=== PATIENT | female | born 1995 | race African-American/Black ===

== ENCOUNTER 2017-05-26 22:31 | Emergency (ER) | payer OTHER ==
[2017-05-26] MEDS: FAMOTIDINE 20 MG/2 ML VIAL IVP ×2 (22:53)
[2017-05-26] MEDS: methylPREDNISolone SOD SUCC PF 125 MG/2 ML VIAL. IV ×2 (22:53)
[2017-05-26] MEDS: diphenhydrAMINE 50 MG/ML VIAL IVP ×2 (22:54)
== END 2017-05-27 02:39 | disposition home or self-care (01) ==
LOC: ER 05-27 02:39
DX: T78.3XXA Angioneurotic edema, initial encounter (principal); T78.03XA Anaphylactic reaction due to other fish, initial encounter; F12.10 Cannabis abuse, uncomplicated; Z91.010 Allergy to peanuts
CPT/HCPCS: 96374; 96375; 99284-25; J1200; J2930; S0028